=== PATIENT | male | born 1965 | race Caucasian/White ===

== ENCOUNTER 2020-10-17 14:11 | Observation (INO) | payer OTHER ==
[~2020-10-17] VITALS: Ht 175.3 cm; Wt 127.0 kg
[2020-10-17 15:02] LABS: RED BLOOD COUNT 5.12 M/UL (4.20-5.50); WHITE BLOOD COUNT 8.8 K/UL (4.5-11.0)
[2020-10-17 15:33] LABS: BUN/CREATININE RATIO 17 (0-10)
[2020-10-17] MEDS ORDERED: SUBOXONE 8 MG-1 EACH SL (21:35)
[2020-10-17] MEDS ORDERED: CLARITIN 10MG T10 MG PO (21:37)
[2020-10-17] MEDS ORDERED: NOVOLOG FL100 UNIT/1 SC (21:37)
[2020-10-17] MEDS ORDERED: HYGROTON TAB 2525 MG PO (21:38)
[2020-10-17] MEDS ORDERED: PRILOSEC OTC20 MG PO (21:39)
[2020-10-17] MEDS ORDERED: METOPROLOL TAR100 MG PO (21:39)
[2020-10-17] MEDS ORDERED: PRAVASTATIN SOD80 MG PO (21:40)
[2020-10-17] MEDS ORDERED: FENOFIBRATE200 MG PO (21:41)
[2020-10-17] MEDS ORDERED: TRESIBA FL100 UNIT/1 SQ (21:43)
[2020-10-17] MEDS ORDERED: ADULT LOW DOSE81 MG PO (21:44)
[2020-10-18 05:29] LABS: HEMOGLOBIN 14.8 gm/dl (14.0-17.5); RED BLOOD COUNT 5.08 M/UL (4.20-5.50); WHITE BLOOD COUNT 6.9 K/UL (4.5-11.0)
[2020-10-18 05:48] LABS: BUN/CREATININE RATIO 24 (0-10)
[2020-10-19 02:53] LABS: RED BLOOD COUNT 5.5 M/UL (4.20-5.50); WHITE BLOOD COUNT 8.1 K/UL (4.5-11.0)
[2020-10-19 03:16] LABS: BUN/CREATININE RATIO 21 (0-10)
[2020-10-19] MEDS ORDERED: XARELTO 10 MG T10 MG PO (11:01)
[2020-10-19] MEDS ORDERED: BETAPACE 80MG T80 MG PO (11:12)
[2020-10-19] MEDS ORDERED: LASIX20 MG PO (11:12)
[2020-10-19] MEDS ORDERED: LISINOPRIL20 MG PO (11:12)
[2020-10-20 02:54] LABS: HEMOGLOBIN 15.2 gm/dl (14.0-17.5); RED BLOOD COUNT 5.21 M/UL (4.20-5.50); WHITE BLOOD COUNT 9.1 K/UL (4.5-11.0)
[2020-10-20 03:44] LABS: BUN/CREATININE RATIO 26 (0-10)
== END 2020-10-20 13:54 | disposition home or self-care (01) ==
LOC: ER1 14:11 → CDU 17:03 → MED SURG 4 20:10
PROVIDERS: Emergency Medicine; Physician Assistant Medical; ADMIT Internal Medicine
DX: I11.0 Hypertensive heart disease with heart failure (principal); I50.9 Heart failure, unspecified; R07.89 Other chest pain; I48.0 Paroxysmal atrial fibrillation; E11.9 Type 2 diabetes mellitus without complications; F17.220 Nicotine dependence, chewing tobacco, uncomplicated; E66.01 Morbid (severe) obesity due to excess calories; B19.20 Unspecified viral hepatitis C without hepatic coma; I25.2 Old myocardial infarction; Z79.82 Long term (current) use of aspirin; Z79.4 Long term (current) use of insulin; R00.1 Bradycardia, unspecified; E78.2 Mixed hyperlipidemia; Z20.822 Contact with and (suspected) exposure to COVID-19; R91.8 Other nonspecific abnormal finding of lung field; I08.2 Rheumatic disorders of both aortic and tricuspid valves; F11.20 Opioid dependence, uncomplicated; I45.2 Bifascicular block
CPT/HCPCS: ECHO; 36415; 71045; 71260; 80048; 80053; 80061; 80307; 82550; 82553; 82962; 83036; 83690; 83735; 83874; 83880; 84100; 84484; 85025; 85027; 85610; 85730; 93005; 93306; 96374; 96375; 96376; 99285; G0378; J1940; Q9967; U0002